=== PATIENT | female | born 1980 | race Caucasian/White ===

== ENCOUNTER 2022-04-15 17:18 | Emergency (ER) | payer SELFPAY ==
[2022-04-15 17:42] VITALS: BP 131/71; PULSE 108; RESP 16; TEMP 36.5; O2SAT 98; BMI 29.7
--- NOTE | 2022-04-15 17:47 | ECG_ITS ---
[facility] Test Date: 2022-04-15 Pat Name: Elizabeth Hendricks Department: Room: Gender: Female Supervisor In Circuit Testing: : 1980 Requested By: Clement Craft Order Number: [id number] Winsome MD: Jaime Mustafa M.D. Measurements Intervals [place] Rate: 102 P: 66 HI: 116 QRS: 60 QRSD: 95 T: 62 QT: 329 QTc: 429 Interpretive Statements SINUS TACHYCARDIA WITH SHORT HI INTERVAL ABNORMAL RHYTHM ECG No previous ECG available for comparison Electronically Signed On 04-17-2022 14:03:46 COCKTAIL LOUNGE MANAGER by Jaime Mustafa M.D. [id number]
--- NOTE | 2022-04-15 18:09 | XRR_ITS ---
PROCEDURE INFORMATION: Exam: XR Chest Exam date and time: 04/15/2022 6:43 PM Age: 41 years old Clinical indication: Apnea and other: Chest pain; Prior surgery; Additional info: Cp TECHNIQUE: Imaging protocol: Radiologic exam of the chest. Views: 1 view. COMPARISON: No relevant prior studies available. FINDINGS: Lungs: Unremarkable. No consolidation. Pleural spaces: Unremarkable. No pleural effusion. No pneumothorax. Heart/Mediastinum: Unremarkable. No cardiomegaly. Bones/joints: Mild dextroscoliosis of the thoracic spine. Visualized osseous structures are intact. XR/XR chest 1V portable [id number] IMPRESSION: No acute findings.
[2022-04-15 19:20] LABS: Basophils # 0.1 10^3/uL (0.0-0.1); Basophils % 1.1 %; Eosinophils # 0.1 10^3/uL (0.0-0.8); Eosinophils % 1.9 %; Hematocrit 41.2 % (37.0-47.0); Hemoglobin 13.2 g/dL (11.5-15.3); Lymphocytes # 1.5 10^3/uL (0.8-4.8); Lymphocytes % 27.7 %; Mean Corpuscular Hemoglobin 29.8 pg (28.0-34.0); Mean Platelet Volume 8.8 fL (7.4-10.4); Monocytes # 0.4 10^3/uL (0.2-0.9); Monocytes % 7.8 %; Neutrophils # 3.28 10^3/uL (1.8-7.7); Neutrophils % 61.1 %; Nucleated Red Blood Cells % 0 %; Platelet Count 317 10^3/cmm (130-400); Red Blood Count 4.43 10^6/uL (4.1-5.3); Red Cell Distribution Width 13.3 % (12.1-15.1); White Blood Count 5.4 10^3/uL (4.0-10.0)
[2022-04-15 19:35] LABS: D Dimer 0.81 ug/mIFEU (0-0.59)
[2022-04-15 19:41] LABS: Alanine Aminotransferase 29 U/L (0-33); Albumin Level 4.2 g/dL (3.5-5.2); Alkaline Phosphatase 100 U/L (35-105); Anion Gap 13.8 (5-19); Aspartate Amino Transferase 28 U/L (0-32); Blood Urea Nitrogen 17 mg/dL (6-20); Calcium 9.2 mg/dL (8.5-10.5); Carbon Dioxide 26 mmol/L (22-29); Chloride 98 mmol/L (98-107); Globulin 2.8 g/dL (1.3-4.6); Glomerular Filtration Rate 110.2 mL/min (90-130); Glucose 90 mg/dL (65-115); Osmolality Calculated 279 mOsm/kg (285-295); Potassium 3.8 mmol/L (3.5-5.1); Sodium 134 mmol/L (136-145); Total Bilirubin 0.2 mg/dL (0.15-1.2)
[2022-04-15 19:51] LABS: Troponin(5th) Baseline 6 ng/L (0-10)
== END 2022-04-15 20:36 | disposition left against medical advice (07) ==
PROVIDERS: Emergency Medicine; Emergency Provider Family Medicine
DX: Z53.21 Procedure and treatment not carried out due to patient leaving prior to being seen by health care provider (principal)
CPT/HCPCS: 71045; 80053; 84484; 85025; 85378; 93005

== ENCOUNTER 2022-04-21 13:57 | Emergency (ER) | payer SELFPAY ==
[2022-04-21 14:03] VITALS: BP 133/88; PULSE 109; RESP 16; TEMP 36.5; O2SAT 100; BMI 29.2
--- NOTE | 2022-04-21 14:05 | W.ED.CHESTPA ---
HPI - Chest Pain General: Chief Complaint: General Medical Stated Complaint: chest pain Time Seen by Provider: 04/21/22 14:05 History of Present Illness: Ms. Hendricks is a 41-year-old lady with history of thyroid disorder not currently on medications presenting to the emergency department due to chest discomfort. Onset of symptoms was approximately 3 weeks ago without known specific provoking factor. Since that time she has had right anterior chest pain with radiation to the back and shoulder. Sharp in characteristic. Some breast fullness though no skin lesions. Was previously evaluated in the emergency department but left prior to completion of treatment. Overall intensity symptoms is moderate to severe. Course has persisted. Limits range of motion of right arm though no sensory changes or loss of dexterity. No other specific changes in health, exacerbating, or alleviating factors identified. Onset (ago): week(s) Timing of current episode: constant Prior episodes: No Pain location: right chest Pain radiation: back and right shoulder Severity: moderate Quality: aching and sharp Exacerbating factors: movement Associated symptoms: Reports no associated symptoms Review of Systems General: Reports: 10 or more systems reviewed and unremarkable except in HPI and below PFSH ED PFSH: Medical History Thyroid disorder Surgical History History of hand surgery History of tonsillectomy and adenoidectomy Social History Smoking and tobacco status: current every day smoker e-cigarettes Physical Exam Const: COMMON NORMALS: alert GENERAL APPEARANCE: cooperative and well developed HENMT: COMMON NORMALS: normocephalic and atraumatic HEAD & SCALP: normocephalic and atraumatic Eye: COMMON NORMALS: conjunctivae normal CONJUNCTIVA: Yes conjunctivae normal SCLERA: sclerae normal Neck/C-Spine: COMMON NORMALS: supple GENERAL: Yes trachea midline Chest: OTHER: Right chest exam performed pool manager present. Patient reports subjective fullness of the right breast compared to the left and perhaps some axillary discomfort however no abnormalities identified on exam. No palpable lymphadenopathy in the axilla. Patient's description and findings are inconsistent with infection or fluid collection/abscess. Resp: COMMON NORMALS: normal respiratory effort EFFORT & INSPECTION: Yes able to speak in complete sentences Cardio: COMMON NORMALS: regular rate and regular rhythm RATE: regular rate RHYTHM: regular rhythm GI: COMMON NORMALS: Soft to palpation PALPATION: Yes Soft to palpation and No Tenderness to palpation present (GI) PERCUSSION: normal to percussion Extremity: GENERAL: Yes normal exam except as noted and No edema Neuro: COMMON NORMALS: moves all extremities SENSORIUM/ORIENTATION: Yes alert and No Orientation impaired Psych: COMMON NORMALS: mental status grossly normal and Normal thought process present THOUGHT PROCESS: Normal thought process present Course Vital Signs: Vital signs: Vital Signs Temperature 97.7 F 04/21/22 14:03 Pulse Rate 87 04/21/22 17:33 Respiratory Rate 19 H 04/21/22 14:57 Blood Pressure 116/76 04/21/22 17:33 Pulse Oximetry 99 04/21/22 17:33 Oxygen Delivery Me thod 04/21/22 14:57 MDM - Chest Pain Medical Decision Making 41-year-old lady presented with chest pain. Exam as above. Patient is nontoxic in appearance. EKG shows sinus rhythm, no STEMI. No significant hematologic or metabolic abnormalities with exception of mild hypokalemia and minimal transaminitis of uncertain etiology. No right upper quadrant tenderness palpation. X-rays negative for acute pathology to explain symptoms. The results of ED evaluation were discussed with the patient including prescriptions and/or symptomatic cares (if applicable) including appropriate and responsible use, followup plan, and return precautions. The patient verbalized understanding and felt safe for discharge. I do recommend ultrasound and mammography in the outpatient setting. Medical Records I reviewed the patient's medical records. Lab Data I reviewed the patient's lab results. 04/21/22 14:40 04/21/22 14:40 Radiology Impressions Chest X-Ray 04/21/22 15:13 IMPRESSION: 1. No acute cardiopulmonary finding. Shoulder X-Ray 04/21/22 15:13 IMPRESSION: 1. No fracture or dislocation. 2. Cortical defect in the greater tuberosity of the humerus which may represent a Hill-Sachs lesion from dislocation. 3. Arthrosis and bone spurring along the inferior margin of the AC joint. Laboratory Results WBC 4.3 10^3/uL (4.0-10.0) 04/21/22 14:40 RBC 4.26 10^6/uL (4.1-5.3) 04/21/22 14:40 Hgb 12.6 g/dL (11.5-15.3) 04/21/22 14:40 Hct 38.8 % (37.0-47.0) 04/21/22 14:40 MCV 91.1 fl (81-99) 04/21/22 14:40 MCH 29.6 pg (28.0-34.0) 04/21/22 14:40 MCHC 32.5 g/dL (30.0-36.0) 04/21/22 14:40 RDW 12.9 % (12.1-15.1) 04/21/22 14:40 Plt Count 302 10^3/cmm (130-400) 04/21/22 14:40 MPV 8.3 fL (7.4-10.4) 04/21/22 14:40 Neut % (Auto) 53.6 % 04/21/22 14:40 Lymph % (Auto) 33.2 % 04/21/22 14:40 Mcdonough % (Auto) 11.6 % 04/21/22 14:40 Eos % (Auto) 0.7 % 04/21/22 14:40 Baso % (Auto) 0.7 % 04/21/22 14:40 Neut # (Auto) 2.31 10^3/uL (1.8-7.7) 04/21/22 14:40 Lymph # (Auto) 1.4 10^3/uL (0.8-4.8) 04/21/22 14:40 Mcdonough # (Auto) 0.5 10^3/uL (0.2-0.9) 04/21/22 14:40 Eos # (Auto) 0.0 10^3/uL (0.0-0.8) 04/21/22 14:40 Baso # (Auto) 0.0 10^3/uL (0.0-0.1) 04/21/22 14:40 Nucleated RBC % (auto) 0 % 04/21/22 14:40 Nucleated RBCs # 0.0 /100WBC 04/21/22 14:40 D-Dimer 0.44 ug/mIFEU (0-0.59) 04/21/22 14:40 Sodium 140 mmol/L (136-145) 04/21/22 14:40 Potassium 3.3 mmol/L (3.5-5.1) L 04/21/22 14:40 Chloride 101 mmol/L (98-107) 04/21/22 14:40 Carbon Dioxide 27 mmol/L (22-29) 04/21/22 14:40 Anion Gap 15.3 (5-19) 04/21/22 14:40 BUN 11 mg/dL (6-20) 04/21/22 14:40 Creatinine 0.6 mg/dL (0.5-0.9) 04/21/22 14:40 GFR Calculation 110.2 mL/min (90-130) 04/21/22 14:40 Glucose 91 mg/dL (65-115) 04/21/22 14:40 Calculated Osmolality 289 mOsm/kg (285-295) 04/21/22 14:40 Lactic Acid 1.4 mmol/L (0.5-2.2) 04/21/22 14:40 Calcium 9.5 mg/dL (8.5-10.5) 04/21/22 14:40 Total Bilirubin 0.6 mg/dL (0.15-1.2) 04/21/22 14:40 AST 42 U/L (0-32) H 04/21/22 14:40 ALT 48 U/L (0-33) H 04/21/22 14:40 Alkaline Phosphatase 91 U/L (35-105) 04/21/22 14:40 Troponin T Baseline 6 ng/L (0-10) 04/21/22 14:40 Troponin T 120 Minute 6.00 ng/L (0-10) 04/21/22 16:47 Delta Troponin T 0 ABS# (0-10) 04/21/22 16:47 NT-Pro-B Natriuret Pep 43 pg/mL (0-125) 04/21/22 14:40 Total Protein 7.4 g/dL (6.6-8.7) 04/21/22 14:40 Albumin 4.4 g/dL (3.5-5.2) 04/21/22 14:40 Globulin 3.0 g/dL (1.3-4.6) 04/21/22 14:40 TSH 3.58 uIU/mL (0.27-4.20) 04/21/22 14:40 Discharge Plan Discharge Patient Disposition: Home Clinical Impression: Chest pain Condition: Stable Prescriptions: New cyclobenzaprine 10 mg tablet 10 mg PO TID PRN (Reason: muscle spasm) Qty: 14 0RF No Action hydrocodone-acetaminophen 5-325 mg tablet 1 tab PO Q6H PRN (Reason: pain) Qty: 20 0RF ondansetron HCl 4 mg tablet 4 mg PO Q6H PRN (Reason: nausea and vomiting) Qty: 10 0RF Discharge Orders: Discharge ED (Routine); Ordered 04/21/22 Ordered By: Clement Craft Discharge Diet: Usual diet Discharge Activity: Increase activity as tolerated Patient Instructions: Chest Pain (ED), Shoulder Pain (ED), Pain Management Activity Restrictions/Additional Instructions: Thank you for visiting the emergency department. You were seen evaluated for chest pain. The exact cause of your symptoms is unclear though it does not appear to need hospitalization at this time. I will message case management for follow-up with a primary care provider. I recommend primary care arrange for a mammogram and ultrasound as indicated given your symptoms. You may use [id number] medications for symptoms however please do not exceed the daily recommended dosage. Return to the emergency department for uncontrolled symptoms or anything else that you are concerned about a feel needs emergency department evaluation. Coding Level of Care Code ED Electric Shovel Operator for Shabana Fwmomo Exam Comprehensive
--- NOTE | 2022-04-21 14:14 | ECG_ITS ---
[facility] Test Date: 2022-04-21 Pat Name: Elizabeth Hendricks Department: Room: Gender: Female Formal Service Waiter: : 1980 Requested By: Clement Craft Order Number: [id number] Winsome MD: Mauricio Singh M.D. Measurements Intervals [place] Rate: 94 P: 63 MA: 134 QRS: 60 QRSD: 114 T: 54 QT: 359 QTc: 450 Interpretive Statements SINUS RHYTHM INCOMPLETE RIGHT BUNDLE BRANCH BLOCK [90+ ms QRS DURATION, TERMINAL R IN V1/V2, 40+ ms S IN I/aVL/V4/V5/V6] Compared to ECG 04/15/2022 17:54:00 Incomplete right bundle-branch block now present Sinus tachycardia no longer present Short MA interval no longer present Electronically Signed On 04-23-2022 6:28:03 [facility] by Mauricio Singh M.D. [email or web address]/store/[id number]
[2022-04-21 14:49] LABS: Basophils % 0.7 %; Eosinophils % 0.7 %; Hematocrit 38.8 % (37.0-47.0); Hemoglobin 12.6 g/dL (11.5-15.3); Lymphocytes # 1.4 10^3/uL (0.8-4.8); Lymphocytes % 33.2 %; Mean Corpuscular HGB Conc 32.5 g/dL (30.0-36.0); Mean Corpuscular Hemoglobin 29.6 pg (28.0-34.0); Mean Corpuscular Volume 91.1 fl (81-99); Mean Platelet Volume 8.3 fL (7.4-10.4); Monocytes # 0.5 10^3/uL (0.2-0.9); Monocytes % 11.6 %; Neutrophils # 2.31 10^3/uL (1.8-7.7); Neutrophils % 53.6 %; Nucleated Red Blood Cells % 0 %; Platelet Count 302 10^3/cmm (130-400); Red Blood Count 4.26 10^6/uL (4.1-5.3); Red Cell Distribution Width 12.9 % (12.1-15.1); White Blood Count 4.3 10^3/uL (4.0-10.0)
[2022-04-21 14:50] VITALS: RESP 17; O2SAT 97
[2022-04-21] MEDS: morphine 4 mg/mL SDV 1 mL IVP (14:50)
[2022-04-21] MEDS: cyclobenzaprine 10 mg Tablet PO (14:50)
[2022-04-21] MEDS: sodium chloride 0.9% 1,000 ML 999 ML IV (14:51)
[2022-04-21] MEDS: ketorolac 30 mg/mL INJ 15 MG IVP (14:51)
[2022-04-21 14:57] VITALS: BP 121/75; PULSE 84; RESP 19; O2SAT 97
[2022-04-21 15:03] LABS: D Dimer 0.44 ug/mIFEU (0-0.59)
[2022-04-21 15:10] LABS: Lactic Sepsis W/Reflex 1.4 mmol/L (0.5-2.2)
[2022-04-21 15:12] LABS: Troponin(5th) Baseline 6 ng/L (0-10)
--- NOTE | 2022-04-21 15:13 | XR_ITS ---
WS: [id number] Exam: XR chest 1V portable [id number] Date/Time of Exam: 04/21/2022 3:13 PM Reason For Exam: chest pain, right Comparison 04/15/2022. The lungs are clear and fully expanded. Normal cardiomediastinal silhouette. No pleural effusions. [place] structures are intact. Dextroscoliosis of the thoracic spine. Monitoring leads superimpose the keyonna st. XR/XR chest 1V portable [id number] IMPRESSION: 1. No acute cardiopulmonary finding.
--- NOTE | 2022-04-21 15:13 | XR_ITS ---
WS: [id number] Exam: XR shoulder RT min 2V* [id number] Date/Time of Exam: 04/21/2022 3:13 PM Reason For Exam: shoulder pain, limited rom No acute fracture or dislocation. Cortical defect seen along the greater tuberosity of the humerus ma y represent a Hill-Sachs lesion from dislocation. Bone spurs project from the inferior margin of the distal clavicle and acromion. Normal soft tissues. XR/XR shoulder RT min 2V* [id number] IMPRESSION: 1. No fracture or dislocation. 2. Cortical defect in the greater tuberosity of the humerus which may represent a Hill-Sachs lesion from dislocation. 3. Arthrosis and bone spurring along the inferior margin of the AC joint.
[2022-04-21 15:20] LABS: Alanine Aminotransferase 48 U/L (0-33); Albumin Level 4.4 g/dL (3.5-5.2); Alkaline Phosphatase 91 U/L (35-105); Anion Gap 15.3 (5-19); Aspartate Amino Transferase 42 U/L (0-32); Blood Urea Nitrogen 11 mg/dL (6-20); Calcium 9.5 mg/dL (8.5-10.5); Carbon Dioxide 27 mmol/L (22-29); Chloride 101 mmol/L (98-107); Glomerular Filtration Rate 110.2 mL/min (90-130); Glucose 91 mg/dL (65-115); NT Pro B Type Natriuretic Pept 43 pg/mL (0-125); Osmolality Calculated 289 mOsm/kg (285-295); Potassium 3.3 mmol/L (3.5-5.1); Sodium 140 mmol/L (136-145); Thyroid Stimulating Hormone 3.58 uIU/mL (0.27-4.20); Total Bilirubin 0.6 mg/dL (0.15-1.2); Total Protein 7.4 g/dL (6.6-8.7)
[2022-04-21] MEDS: potassium chloride ER 20 mEq Tablet 40 MEQ PO (15:42)
--- NOTE | 2022-04-21 16:19 | ECG_ITS ---
[facility] Test Date: 2022-04-21 Pat Name: Elizabeth Hendricks Department: Room: Gender: Female Artist Mannequin Coloring: : 1980 Requested By: Clement Craft Order Number: [id number] Winsome MD: Mauricio Singh M.D. Measurements Intervals [place] Rate: 87 P: 61 TN: 131 QRS: 59 QRSD: 109 T: 60 QT: 380 QTc: 459 Interpretive Statements SINUS RHYTHM INCOMPLETE RIGHT BUNDLE BRANCH BLOCK [90+ ms QRS DURATION, TERMINAL R IN V1/V2, 40+ ms S IN I/aVL/V4/V5/V6] Compared to ECG 04/21/2022 14:30:50 No significant changes Electronically Signed On 04-23-2022 6:33:54 SALES AND MARKETING EXECUTIVE by Mauricio Singh M.D. [email or web address] medical [facility].[email or web address]/store/[id number]
[2022-04-21 17:33] VITALS: BP 116/76; PULSE 87; O2SAT 99
[2022-04-21 18:12] LABS: Troponin 5 2HR Delta 0 ABS# (0-10)
== END 2022-04-21 17:30 | disposition home or self-care (01) ==
PROVIDERS: Emergency Provider Emergency Medicine
DX: R07.9 Chest pain, unspecified (principal); E07.9 Disorder of thyroid, unspecified
CPT/HCPCS: 36415; 71045; 73030; 80053; 83605; 83880; 84443; 84484; 85025; 85378; 93005; 96361; 96374; 96375; 99285; J1885; J2270; J7030

== ENCOUNTER 2022-04-23 06:50 | Emergency (ER) | payer SELFPAY ==
[2022-04-23 06:53] VITALS: BP 157/83; PULSE 107; RESP 20; TEMP 36.6; O2SAT 100; BMI 29.5
--- NOTE | 2022-04-23 06:58 | ED_ITS ---
HPI - General Adult General: Chief complaint: General Medical Stated complaint: chest pain Time Seen by Provider: 04/23/22 06:58 Source: patient Mode of arrival: ambulatory History of Present Illness: 41-year-old female presents emergency room complaining of rib pain for the last 3 weeks. She said a cough treatment same time cough nonproductive no trauma. Yesterday during a coughing fit patient felt a pop on the right lower side has severe pain with cough or deep breath since then. Feels like it is difficult to take a deep breath and extremely painful to cough. No radiation of the pain no hemoptysis. Onset (ago): day(s) (1) Location: chest Severity: severe Quality: sharp Pain Consistency: constant Relieving factors: other (Splinting right lower chest wall) Exacerbating factors: movement and other (Inspiration and cough) Associated symptoms: Reports chest pain, cough, malaise and short of breath; Deny confusion, diaphoresis, decreased appetite, dyspnea, fevers/chills, headache(s), nausea, rash, palpitations, seizures, syncope, vomiting or weakness Treatments prior to arrival: none Review of Systems Const: Reports: malaise; Denies: fever(s), chills, fatigue or diaphoresis ENMT: Denies: throat pain, ear or mastoid pain, nasal discharge or nasal congestion Card: Reports: chest pain; Denies: palpitations, irregular heart rhythm, edema or syncope Resp: Reports: non-productive cough and wheezing; Denies: dyspnea or productive cough GI: Denies: abdominal pain, nausea or vomiting : Denies: flank pain, difficulty voiding, dysuria, urinary frequency or urinary urgency Musc: Denies: neck pain or back pain Skin/Breast: Denies: rash Neuro: Denies: headache(s) or confusion PFS ED PFSH: Medical History Thyroid disorder Surgical History History of hand surgery History of tonsillectomy and adenoidectomy Social History Smoking and tobacco status: current every day smoker e-cigarettes Physical Exam Const: COMMON NORMALS: no acute distress GENERAL APPEARANCE: cooperative and comfortable ORIENTATION/CONSCIOUSNESS: Yes awake, Yes oriented to person, Yes oriented to place and Yes oriented to time HENMT: COMMON NORMALS: normocephalic, atraumatic and hearing grossly normal bilaterally HEAD & SCALP: normocephalic and atraumatic Chest: OTHER: Exquisite tenderness palpation of the right lower ribs Resp: COMMON NORMALS: normal respiratory effort, No retractions, No use of accessory muscles and clear to auscultation bilaterally AUSCULTATION: clear to auscultation bilaterally Cardio: COMMON NORMALS: regular rate, regular rhythm and No murmurs present (Cardio) RATE: regular rate RHYTHM: regular rhythm GI: COMMON NORMALS: Soft to palpation and No hepatosplenomegaly present AUSCULTATION: Yes normoactive bowel sounds PALPATION: Yes Soft to palpation, No Tenderness to palpation present (GI), No Guarding due to palpation present (GI) and Yes No hepatosplenomegaly present Extremity: COMMON NORMALS: normal to inspection, capillary refill normal, no clubbing, cyanosis or edema, no calf tenderness and no pedal edema Neuro: SENSORIUM/ORIENTATION: Yes oriented to person, Yes oriented to place and Yes oriented to time Skin: COMMON NORMALS: no rashes or lesions noted GENERAL SKIN EXAM: no rashes or lesions noted Course Vital Signs: Vital signs: Vital Signs Temperature 97.9 F 04/23/22 06:53 Pulse Rate 99 04/23/22 08:34 Respiratory Rate 18 04/23/22 08:34 Blood Pressure 143/93 04/23/22 08:34 Pulse Oximetry 100 04/23/22 08:34 Oxygen Delivery Me thod 04/23/22 06:53 MDM - General Adult Medical Decision Making Labs imaging reviewed nondisplaced fracture on the right fourth and fifth ribs. Discharge home with pain medications discussed with the patient she can splint for deep breathing or cough using a pillow against the right side of the chest advised against rib belts. Hydrocodone for pain follow-up with primary care. No evidence of infiltrate or pneumothorax. No pneumonia. Her cough is due to upper respiratory infection she does not have a high fever not even have significant myalgias is usually associated with COVID or flu. Medical Records I reviewed the patient's medical records. Lab Data I reviewed the patient's lab results. Radiology Impressions Ribs X-Ray 04/23/22 07:43 IMPRESSION: 1. Nondisplaced fractures of the lateral aspects of the right fourth and fifth ribs. Possible nondisplaced fracture right sixth rib. No pneumothorax or other significant finding. Discharge Plan Discharge Patient Disposition: Home Clinical Impression: Fracture of rib due to cough, Viral URI with cough Condition: Stable Prescriptions: New hydrocodone-acetaminophen 5-325 mg tablet 1 tab PO Q6H PRN (Reason: pain) Qty: 20 0RF ondansetron HCl 4 mg tablet 4 mg PO Q6H PRN (Reason: nausea and vomiting) Qty: 10 0RF No Action cyclobenzaprine 10 mg tablet 10 mg PO TID PRN (Reason: muscle spasm) Qty: 14 0RF Discharge Orders: Discharge ED (Routine); Ordered 04/23/22 Ordered By: Saúl Herrera Patient Instructions: Opioid Safety, Pain Management Activity Restrictions/Additional Instructions: You were seen for right-sided rib pain. Chest x-ray show fourth and fifth rib fractures with a questionable fracture on the sixth rib. This is likely secondary to coughing since she gave no history of trauma. There is no pneumothorax and no pneumonia. Pain medications were prescribed as well as nausea medications. You can use Tylenol but to be aware that there is Tylenol combined with the pain medication you were prescribed and you should not take additional Tylenol when taking that. Avoid the use of ibuprofen as it can slow healing of the fractures. Coding Level of Care Code ED Food Production Associate for Shabana Brennan
--- NOTE | 2022-04-23 07:12 | ECG_ITS ---
[facility] Test Date: 2022-04-23 Pat Name: Elizabeth Hendricks Department: Room: Gender: Female Lead Accountant: : 1980 Requested By: Salú Melvin Order Number: [id number] Winsome MD: Mauricio Singh M.D. Measurements Intervals [place] Rate: 96 P: 76 MS: 132 QRS: 86 QRSD: 102 T: 79 QT: 343 QTc: 433 Interpretive Statements SINUS RHYTHM Compared to ECG 04/21/2022 16:19:48 Incomplete right bundle-branch block no longer present Electronically Signed On 04-26-2022 18:27:19 MINE ANALYST by Mauricio Singh M.D. [email or web address] Genome Research Instituteswhitfield medical surgical hospitalBlueKitemercy health.spotdock/store/OM/[id number]
[2022-04-23] MEDS: ketorolac 60 mg/2 mL INJ IM (07:39)
--- NOTE | 2022-04-23 07:43 | XR_ITS ---
WS: [email or web address] Exam: XR ribs RT mn 3V w CXR1V [id number] Date/Time of Exam: 04/23/2022 7:46 AM Reason For Exam: pain There are nondisplaced fractures of the lateral aspects of the fourth and fifth right ribs. Questiona ble nondisplaced fracture of the right sixth rib. No pneumothorax. No pleural or pulmonary reactive c hanges. The lungs are bilaterally clear. Normal cardiomediastinal silhouette. Dextroscoliosis of the T-spine. No pleural effusion. XR/XR ribs RT mn 3V w CXR1V [id number] IMPRESSION: 1. Nondisplaced fractures of the lateral aspects of the right fourth and fifth ribs. Possible nondisplaced fracture right sixth rib. No pneumothorax or other significant finding.
[2022-04-23 08:34] VITALS: BP 143/93; PULSE 99; RESP 18; O2SAT 100
== END 2022-04-23 08:55 | disposition home or self-care (01) ==
PROVIDERS: Emergency Provider Family Medicine
DX: S22.41XA Multiple fractures of ribs, right side, initial encounter for closed fracture (principal); X58.XXXA Exposure to other specified factors, initial encounter; J06.9 Acute upper respiratory infection, unspecified; R05.9 Cough, unspecified
CPT/HCPCS: 71101; 93005; 96372; 99284; J1885

== ENCOUNTER → 2024-09-20 15:55 | Outpatient (BNVA) | payer BC, SELFPAY | PROVIDERS: Referring Provider Psychiatry & Neurology Psychiatry; Visit Provider Psychiatry & Neurology Psychiatry | DX: Z79.899 Other long term (current) drug therapy (principal) | CPT/HCPCS: 80061; 83036 ==